=== PATIENT | male | born 1975 | race Caucasian/White ===

== ENCOUNTER 2016-11-09 08:44 | Emergency (ER) | payer OTHER ==
[~2016-11-09] VITALS: Ht 177.8 cm; Wt 68.4 kg
[~2016-11-09 08:44] MED LIST: MOTRIN800 MG PO
[2016-11-09 09:17] LABS: BASOPHIL COUNT 0.1 K/uL (0-0.1); EOSINOPHIL (%) 1.9 % (0-5); EOSINOPHIL COUNT 0.1 K/uL (0-0.3); HEMATOCRIT 45.1 % (38.0-50.0); IMMATURE GRANULOCYTE (%) 0.2 % (0.0-0.7); INSTRUMENT ABS NEUTROPHIL CT 4.2 K/uL; LYMPHOCYTE COUNT 1.3 K/uL (1.0-2.8); MCH 28.9 PG (29.0-34.0); MCHC 34.8 G/DL (30.0-36.0); MCV 82.9 FL (86-99); MEAN PLAT.VOLUME 9.6 uM^3 (9.0-12.4); MONOCYTE (%) 13.4 % (3-12); MONOCYTE COUNT 0.9 K/uL (0-0.8); NEUTROPHIL (%) 64.1 % (45-76); NEUTROPHIL COUNT 4.2 K/uL (1.8-6.4); PLATELET COUNT 270 K/uL (156-360); RBC DIS.WIDTH-CV 11.9 % (11.8-14.6); RBC DIS.WIDTH-SD 35.8 % (39-53); RED BLOOD COUNT 5.44 M/uL (4.00-5.50); WHITE BLOOD COUNT 6.5 K/uL (4.1-10.2)
[2016-11-09 09:27] LABS: CHLORIDE 105 mEq/L (99-109); POTASSIUM 3.9 mEq/L (3.7-5.4); SODIUM 138 mEq/L (136-147)
[2016-11-09 09:29] LABS: GLUCOSE 89 mg/dL (70-99)
[2016-11-09 09:30] LABS: ANION GAP 10 MEQ/L (2-14)
[2016-11-09 09:31] LABS: TOTAL BILIRUBIN 0.7 mg/dL (0.0-1.0)
[2016-11-09 09:32] LABS: ALKALINE PHOSPHATASE 70 IU/L (3-129)
[2016-11-09 09:33] LABS: GFR ESTIMATE (CALCULATED) > 59 mL/min/
[2016-11-09 09:36] LABS: LIPASE 16 U/L (1.0-51.0); UREA NITROGEN (BUN) 13 mg/dL (9-23)
[2016-11-09 10:57] LABS: ADD MIUA? YES; BILIRUBIN NEGATIVE; BLOOD MODERATE; COLOR STRAW ((YELLOW)); GLUCOSE (STRIP) NEGATIVE; KETONES 5; LEUKOCYTES NEGATIVE; NITRITE NEGATIVE; PROTEIN (STRIP) NEGATIVE; SPECIFIC GRAVITY 1.004 (1.000-1.030); UROBILINOGEN 0.2 MG/DL (0.2-1.0)
[2016-11-09 10:59] LABS: BACTERIA RARE /HPF; EPITHELIAL CELLS NONE SEEN /HPF; MUCUS NONE SEEN /LPF; RED BLOOD CELLS 0-5 /HPF (0-5); UCUL ADDED? NO; WHITE BLOOD CELLS 0-5 /HPF (0-5)
[2016-11-09] MEDS ORDERED: PERCOCET 5/31 TABLET PO (12:25)
[2016-11-09] MEDS ORDERED: FLOMAX0.4 MG PO (12:25)
[2016-11-09] MEDS ORDERED: MOTRIN800 MG PO (12:25)
[2016-11-09 12:43] VITALS: BP 135/77
== END 2016-11-09 12:43 | disposition home or self-care (01) ==
LOC: EME 08:44
PROVIDERS: Emergency Medicine
DX: N13.2 Hydronephrosis with renal and ureteral calculous obstruction (principal); R11.2 Nausea with vomiting, unspecified; R19.7 Diarrhea, unspecified; R31.9 Hematuria, unspecified; F17.200 Nicotine dependence, unspecified, uncomplicated
CPT/HCPCS: 74176; 76705; 80053; 81003; 83690; 85025; 99281; 99284; J1885; J2270; J2405; J7030

== ENCOUNTER 2017-03-27 01:14 | Inpatient (IN) | payer OTHER ==
[~2017-03-27] VITALS: Ht 431.8 cm; Wt 58.3 kg
[~2017-03-27 01:14] MED LIST changes: +FLOMAX0.4 MG PO; +PERCOCET 5/31 TABLET PO
[2017-03-27 02:18] LABS: HEMATOCRIT 44.7 % (38.0-50.0); MCH 29.1 PG (29.0-34.0); MCHC 34.2 G/DL (30.0-36.0); MCV 85.1 FL (86-99); MEAN PLAT.VOLUME 9.9 uM^3 (9.0-12.4); PLATELET COUNT 231 K/uL (156-360); RBC DIS.WIDTH-CV 12.2 % (11.8-14.6); RED BLOOD COUNT 5.25 M/uL (4.00-5.50); WHITE BLOOD COUNT 11.2 K/uL (4.1-10.2)
[2017-03-27 02:27] LABS: AMYLASE 53 IU/L (1-118); CHLORIDE 102 mEq/L (99-109); POTASSIUM 3.6 mEq/L (3.7-5.4); SODIUM 135 mEq/L (136-147)
[2017-03-27 02:29] LABS: GLUCOSE 140 mg/dL (70-99)
[2017-03-27 02:30] LABS: ANION GAP 10 MEQ/L (2-14)
[2017-03-27 02:32] LABS: SERUM ETHYL ALCOHOL < 10 mg/dL
[2017-03-27 02:33] LABS: GFR ESTIMATE (CALCULATED) > 59 mL/min/
[2017-03-27 02:34] LABS: UREA NITROGEN (BUN) 8 mg/dL (9-23)
[2017-03-27 02:36] LABS: LIPASE 19 U/L (1.0-51.0)
[2017-03-27 14:16] VITALS: BP 120/78
[2017-03-27 16:08] VITALS: BP 119/65
== END 2017-03-27 20:50 | disposition left against medical advice (07) | DRG 200 ==
LOC: EME → EDBD 01:14 → TRA 01:14 → EME 01:14 → EDOF 04:15 → ENRESERV 04:27 → 3EAST 13:28
PROVIDERS: Emergency Medicine
DX: S27.0XXA Traumatic pneumothorax, initial encounter (principal); S27.321A Contusion of lung, unilateral, initial encounter; S22.43XA Multiple fractures of ribs, bilateral, initial encounter for closed fracture; N13.2 Hydronephrosis with renal and ureteral calculous obstruction; J98.11 Atelectasis; Y04.2XXA Assault by strike against or bumped into by another person, initial encounter; Z87.442 Personal history of urinary calculi; F17.210 Nicotine dependence, cigarettes, uncomplicated; Y93.01 Activity, walking, marching and hiking; Y92.480 Sidewalk as the place of occurrence of the external cause
CPT/HCPCS: 70450; 71250; 76770; 80048; 81003; 82150; 83690; 85027; 99281; 99285; G0480; J3010; J7030; J7120